=== PATIENT | female | born 1990 | race Hispanic/Latino ===

== ENCOUNTER 2020-05-20 23:20 | Inpatient (IN) | payer OTHER, SELFPAY ==
[~2020-05-20 23:20] MED LIST: Bupivacaine/Epinephrine 0.25% 30 ML VIAL ONE
[2020-05-20] MEDS ORDERED: Butorphanol Tartrate 1 MG/ML VIAL SLOW IVP PRN (23:53)
[2020-05-20] MEDS ORDERED: Promethazine HCl 25 MG/ML VIAL IM PRN (23:53)
[2020-05-20] MEDS ORDERED: Acetaminophen 500 MG TAB PO PRN (23:53)
[2020-05-20] MEDS ORDERED: NS / Oxytocin 40 units/1000ml 1,000 ML IV PRN (23:53)
[2020-05-20] MEDS ORDERED: Lidocaine 1% (PF) 30 ML VIAL SC PRN (23:53)
[2020-05-20] MEDS ORDERED: Ondansetron PF 4 MG/2 ML Vial IVP PRN (23:53)
[2020-05-20] MEDS: Lactated Ringer's 1,000 ML IV SCH (23:55)
[2020-05-20 23:57] VITALS: BMI 35.2
[2020-05-21] MEDS ORDERED: Penicillin G Potassium 5 MILL.UNITS in Sodium Chloride 0.9% 100 ML IVPB SCH (00:30)
[2020-05-21 01:28] LABS: Hemoglobin 11.9 g/dL (12.0-16.0); Mean Corpuscular HGB CONC 35.1 g/dL (32.0-36.0); Mean Corpuscular Hemoglobin 32.5 pg (27.0-31.0); Mean Corpuscular Volume 92.5 fL (78.0-98.0); Mean Platelet Volume 8.3 fL (7.4-10.4); Platelet Count 196 thou/uL (130-400); Red Blood Cell (RBC) Count 3.67 mill/uL (4.20-5.40); White Blood Cell (WBC) Count 8.4 thou/uL (4.8-10.8)
[2020-05-21 02:04] LABS: HBSAg Index 0.16 S/CO (0-0.99); Hep B Surf Ag Non-Reactive S/CO (NonReactive)
[2020-05-21 03:45] LABS: Syphilis Antibody Nonreactive (Nonreactive); Syphilis Antibody Index 0.04 S/CO (<1.00 Non-Reactive)
[2020-05-21] MEDS: Penicillin G 2.5 MILL.units 50 ML IVPB SCH ×3 (04:40→15:21)
[2020-05-21] MEDS: hydrALAZINE 20 MG/ML VIAL SLOW IVP PRN ×2 (08:48→10:47)
[2020-05-21] MEDS: Lactated Ringer's 1,000 ML IV SCH (08:49)
[2020-05-21] MEDS ORDERED: Fentanyl 4 mcg/Bup 0.1% Cadd 100 ML ONE (09:37)
[2020-05-21] MEDS ORDERED: Promethazine HCl 25 MG/ML VIAL IM PRN ×2 (10:12→13:25)
[2020-05-21] MEDS ORDERED: Acetaminophen 325 MG TAB PO PRN (10:12)
[2020-05-21] MEDS ORDERED: diphenhydrAMINE 50 MG/ML VIAL IVP PRN (10:12)
[2020-05-21] MEDS ORDERED: Ondansetron PF 4 MG/2 ML Vial IVP PRN ×2 (10:12→13:25)
[2020-05-21] MEDS ORDERED: EPHEDRINE 25 MG/5 ML SYRINGE SLOW IVP PRN (10:12)
[2020-05-21] MEDS ORDERED: Lactated Ringer's 500 ML IV PRN (10:12)
[2020-05-21] MEDS ORDERED: Naloxone HCl 0.4 mg/ml Vial IVP PRN ×2 (10:12)
[2020-05-21] MEDS ORDERED: Communication Order-Pharmacy FS SCH (10:15)
[2020-05-21] MEDS ORDERED: Fentanyl 4 mcg/Bupivacaine 0.1% Cassette 100 ML EPIDURAL SCH (10:15)
[2020-05-21] MEDS ORDERED: Carboprost 250 MCG/ML AMP ONE (11:06)
[2020-05-21] MEDS ORDERED: Misoprostol 200 MCG TAB ONE (11:06)
[2020-05-21] MEDS ORDERED: cloNIDine 0.1 MG TAB PO PRN (11:47)
[2020-05-21] MEDS ORDERED: hydrALAZINE 20 MG/ML VIAL SLOW IVP PRN ×2 (13:25→15:25)
[2020-05-21] MEDS ORDERED: diphenhydrAMINE 25 MG CAP PO PRN (13:25)
[2020-05-21] MEDS ORDERED: HYDROcodone/Acetaminophen 5/325 mg Tablet PO PRN ×2 (13:25)
[2020-05-21] MEDS ORDERED: NS / Oxytocin 40 units/1000ml 1,000 ML IV SCH (13:25)
[2020-05-21] MEDS ORDERED: Lanolin Ointment 7 GM TUBE TOP PRN (13:25)
[2020-05-21] MEDS ORDERED: Bisacodyl 10 MG SUPP PR PRN (13:25)
[2020-05-21] MEDS ORDERED: Milk Of Magnesia 30 ML UDCUP PO PRN (13:25)
[2020-05-21 14:00] LABS: SARS-CoV-2 MS2 Positive; SARS-CoV-2 N Gene Negative; SARS-CoV-2 S Gene Negative; SARS-CoV-2 by NAA Not Detected (NotDetected); SARS-CoV-2 orf1ab Negative
[2020-05-21] MEDS: Ibuprofen 800 MG TAB PO SCH ×2 (15:15→21:54)
[2020-05-21] MEDS ORDERED: hydrALAZINE 20 MG/ML VIAL SLOW IVP SCH (15:30)
[2020-05-21] MEDS: Ferrous Sulfate 325 MG TAB PO SCH (16:30)
[2020-05-21] MEDS: Docusate Calcium (SURFAK) 240 MG CAP PO SCH (21:55)
[2020-05-22] MEDS: Ibuprofen 800 MG TAB PO SCH ×3 (05:26→23:15)
[2020-05-22 05:58] LABS: Hemoglobin 11.7 g/dL (12.0-16.0); Mean Corpuscular HGB CONC 34.3 g/dL (32.0-36.0); Mean Corpuscular Hemoglobin 32.5 pg (27.0-31.0); Mean Corpuscular Volume 94.7 fL (78.0-98.0); Mean Platelet Volume 8.1 fL (7.4-10.4); Platelet Count 181 thou/uL (130-400); RBC Distribution Width 13.2 % (11.5-14.5)
[2020-05-22] MEDS ORDERED: Adacel (T-DAP) 0.5 ML SYRINGE IM ONE (09:00)
[2020-05-22] MEDS: Prenatal Vitamin 1 TAB PO SCH (09:33)
[2020-05-22] MEDS: Ferrous Sulfate 325 MG TAB PO SCH ×2 (09:33→23:27)
[2020-05-22] MEDS: Docusate Calcium (SURFAK) 240 MG CAP PO SCH ×2 (09:33→23:27)
[2020-05-23] MEDS: Ibuprofen 800 MG TAB PO SCH (06:28)
[2020-05-23] MEDS: Docusate Calcium (SURFAK) 240 MG CAP PO SCH (07:41)
[2020-05-23] MEDS: Prenatal Vitamin 1 TAB PO SCH (07:41)
[2020-05-23 08:10] VITALS: TEMP 98.2
[2020-05-23] MEDS: Ferrous Sulfate 325 MG TAB PO SCH (08:10)
[2020-05-23 09:04] VITALS: BP 130/66
== END 2020-05-23 10:04 | disposition home or self-care (01) | DRG 807 ==
LOC: L&D/OP 23:20 → L&D 23:53 → 3SW 05-21 14:47
PROVIDERS: ADMIT Obstetrics & Gynecology; ATTEND Obstetrics & Gynecology
PROC: 10E0XZZ Delivery of Products of Conception, External Approach (ICD-10-PCS; principal; 2020-05-21)
PROC: 10907ZC Drainage of Amniotic Fluid, Therapeutic from Products of Conception, Via Natural or Artificial Opening (ICD-10-PCS; 2020-05-21)
DX: O34.219 Maternal care for unspecified type scar from previous cesarean delivery (principal); Z37.0 Single live birth; Z3A.38 38 weeks gestation of pregnancy; Z20.828 Contact with and (suspected) exposure to other viral communicable diseases
CPT/HCPCS: 36415; 51702; 85027; 86780; 86850; 86900; 86901; 87340; 87635; 99285; J0360; J2540; J3490; U0003

== ENCOUNTER 2021-07-24 01:54 | Inpatient (IN) | payer SELFPAY ==
[2021-07-24] MEDS ORDERED: Piperacillin/Tazobactam 3.375 GM VIAL ONE (03:49)
[2021-07-24] MEDS ORDERED: Fentanyl 100 MCG/2 ML VIAL ONE ×4 (03:49→16:34)
[2021-07-24 05:58] LABS: SARS-CoV-2 NAA Rapid Test DETECTED (NotDetected)
[2021-07-24] MEDS ORDERED: hydrALAZINE 20 MG/ML VIAL SLOW IVP PRN (10:07)
[2021-07-24] MEDS ORDERED: Ondansetron PF 4 MG/2 ML Vial IVP PRN (10:08)
[2021-07-24] MEDS ORDERED: Morphine 4 MG/ML VIAL SLOW IVP PRN (10:08)
[2021-07-24] MEDS ORDERED: Sodium Chloride 0.9% 1,000 ML IV SCH (10:15)
[2021-07-24] MEDS ORDERED: Electrolyte Replacement Protocol 1 EACH FS SCH (10:15)
[2021-07-24] MEDS ORDERED: Lidocaine 2% Jelly 5 ML TUBE ONE (13:25)
[2021-07-24] MEDS ORDERED: Xylocaine 1% w/ Epi 1:100K 10 ML VIAL ONE (13:33)
[2021-07-24] MEDS ORDERED: Bupivacaine 0.25% 10 ML VIAL ONE (13:33)
[2021-07-24] MEDS ORDERED: Iothalamate Meglumine 60% 50 ML VIAL FS ONE (13:33)
[2021-07-24] MEDS ORDERED: ceFAZolin 2 GM/DEX 5% 100 ML BAG ONE (14:54)
[2021-07-24] MEDS ORDERED: Sodium Chloride 0.9% 10 ML ONE (15:09)
[2021-07-24] MEDS ORDERED: HYDROmorphone 2 MG/ML VIAL ONE (15:09)
[2021-07-24] MEDS ORDERED: Lidocaine 1% PF 5 ML VIAL ONE (15:20)
[2021-07-24] MEDS ORDERED: PROPOFOL 200 MG/20 ML VIAL ONE (15:20)
[2021-07-24] MEDS ORDERED: Dexamethasone 20 MG/5 ML VIAL ONE (15:20)
[2021-07-24] MEDS ORDERED: Phenylephrine 10 MG/ML VIAL ONE (15:20)
[2021-07-24] MEDS ORDERED: Rocuronium Bromide 10 MG/ML (10ML VIAL) ONE (15:20)
[2021-07-24] MEDS ORDERED: Ondansetron PF 4 MG/2 ML Vial ONE (15:20)
[2021-07-24] MEDS ORDERED: Ketorolac Tromethamine 30 MG/ML VIAL ONE (15:20)
[2021-07-24] MEDS ORDERED: Glycopyrrolate 0.2 MG/ML 5 ML SYRINGE ONE (15:20)
[2021-07-24] MEDS ORDERED: HYDROcodone/Acetaminophen 5/325 mg Tablet ONE (17:50)
== END 2021-07-24 18:23 | disposition home or self-care (01) | DRG 417 ==
LOC: ERS 01:54 → ERHOLD 04:28
PROVIDERS: ADMIT Internal Medicine; ATTEND Nurse Practitioner Family
PROC: 0FT44ZZ Resection of Gallbladder, Percutaneous Endoscopic Approach (ICD-10-PCS; principal; 2021-07-24)
PROC: BF0C1ZZ Plain Radiography of Hepatobiliary System, All using Low Osmolar Contrast (ICD-10-PCS; 2021-07-24)
PROC: 8E0ZXY6 Isolation (ICD-10-PCS; 2021-07-24)
PROC: XW03396 Introduction of Ceftolozane/Tazobactam Anti-infective into Peripheral Vein, Percutaneous Approach, New Technology Group 6 (ICD-10-PCS; 2021-07-24)
DX: K80.42 Calculus of bile duct with acute cholecystitis without obstruction (principal); U07.1 COVID-19; I10 Essential (primary) hypertension; K42.9 Umbilical hernia without obstruction or gangrene; K83.8 Other specified diseases of biliary tract; Z79.899 Other long term (current) drug therapy
CPT/HCPCS: 47532; 76705; 88304; C1713; J1100; J1170; J1610; J1885; J2370; J2405; J2543; J2704; J3010; J7050; Q9961-U8; S0020; U0002

== ENCOUNTER 2021-08-08 14:32 | Emergency (ER) | payer SELFPAY ==
[2021-08-08 14:57] LABS: #Eosinphils 0.2 thou/uL (0.0-0.7); #Lymphocytes 1.9 thou/uL (1.20-3.40); #Monocytes 0.4 thou/uL (0.11-0.59); #Neutrophils 4.4 thou/uL (1.40-6.50); %Basophils 0.4 % (0.0-1.0); %Eosinophils 3.5 % (0.0-10.0); %Lymphocytes 27.5 % (21.0-51.0); %Monocytes 5.1 % (0.0-10.0); %Neutrophils 63.5 % (42.0-75.0); Hemoglobin 12.6 g/dL (12.0-16.0); Mean Corpuscular HGB CONC 33.5 g/dL (32.0-36.0); Mean Corpuscular Hemoglobin 30.2 pg (27.0-31.0); Mean Corpuscular Volume 90.2 fL (78.0-98.0); Mean Platelet Volume 6.8 fL (7.4-10.4); Platelet Count 345 thou/uL (130-400); RBC Distribution Width 12.3 % (11.5-14.5); Red Blood Cell (RBC) Count 4.16 mill/uL (4.20-5.40)
[2021-08-08 15:29] LABS: ALT (SGPT) 10 U/L (8-55); AST (SGOT) 12 U/L (5-34); Albumin 4.2 g/dL (3.5-5.0); Alkaline Phosphatase 72 U/L (40-110); Anion Gap 9 mmol/L (10-20); BUN (Urea Nitrogen) 12 mg/dL (7.0-18.7); Bilirubin, Total 0.3 mg/dL (0.2-1.2); Calc. Creatinine Clearance 0 mL/min (70-130); Calcium 9.5 mg/dL (7.8-10.44); Carbon Dioxide 27 mmol/L (22-29); Chloride 104 mmol/L (98-107); Globulin 3.8 g/dL (2.4-3.5); Glucose 106 mg/dL (70-105); Potassium 3.8 mmol/L (3.5-5.1); Sodium 136 mmol/L (136-145)
[2021-08-08] MEDS ORDERED: Ondansetron PF 4 MG/2 ML Vial ONE (17:58)
== END 2021-08-08 20:34 | disposition home or self-care (01) ==
LOC: ERS 14:32
DX: E86.0 Dehydration (principal); R42 Dizziness and giddiness; I10 Essential (primary) hypertension; Z79.899 Other long term (current) drug therapy
CPT/HCPCS: 36415; 80053; 83690; 85025; 96374; J2405